=== PATIENT | female | born 1950 | race African-American/Black ===

== ENCOUNTER 2021-02-06 12:56 | Emergency (ER) | payer OTHER ==
[2021-02-06 13:22] VITALS: BP 147/88; PULSE 118; TEMP 98.1; BMI 36.8
[2021-02-06] MEDS ORDERED: DIPHTH,PERTUSS(ACELL),TET 0.5 ML DISP.SYRIN IM ONE ×2 (13:57→14:07)
[2021-02-06] MEDS ORDERED: BACITRACIN 15 GM TUBE TOPICAL OINTMENT ONE (14:44)
[2021-02-06] MEDS ORDERED: BACITRACIN 15 GM TUBE TOPICAL OINTMENT TP ONE (14:44)
== END 2021-02-06 14:40 | disposition home or self-care (01) ==
LOC: JER 12:56
PROC: 3E0234Z Introduction of Serum, Toxoid and Vaccine into Muscle, Percutaneous Approach (ICD-10-PCS; principal; 2021-02-06)
DX: M25.462 Effusion, left knee (principal); S80.02XA Contusion of left knee, initial encounter
CPT/HCPCS: 73562-TC-LT-FY; 90471; 90715; 99284-25

== ENCOUNTER 2023-08-02 14:36 | Inpatient (IN) | payer OTHER ==
[2023-08-02] MEDS: SODIUM CHLORIDE 500 ML IV STA (18:30)
[2023-08-02] MEDS: ONDANSETRON 4 MG/2 ML VIAL IVPUSH ONE (18:30)
[2023-08-02] MEDS ORDERED: ONDANSETRON 4 MG/2 ML VIAL ONE (18:33)
[2023-08-02 18:45] LABS: HEMATOCRIT 30.9 % (32.4-45.2); HEMOGLOBIN 9.3 GM/dL (10.7-15.3); MCH 25.6 pg (25.7-33.7); MEAN CELL VOLUME 85.3 fl (80-96); MEAN PLT VOLUME 9.9 fl (7.5-11.1); PLATELET COUNT 151 10^3/uL (134-434); RBC 3.63 M/mm3 (3.60-5.2); RDW 20.8 % (11.6-15.6)
[2023-08-02 19:07] LABS: POTASSIUM 3.5 mmol/L (3.5-5.1)
[2023-08-02 19:11] LABS: CALCIUM 8.6 mg/dL (8.5-10.1)
[2023-08-02 19:12] LABS: ALBUMIN 1.8 g/dl (3.4-5.0); BLOOD UREA NITROGEN 91.6 mg/dL (7-18)
[2023-08-02 19:15] LABS: CREATININE 4.9 mg/dL (0.55-1.3)
[2023-08-02 19:17] LABS: BILIRUBIN,TOTAL 5.5 mg/dL (0.2-1); TOT PROT 6.7 g/dl (6.4-8.2)
[2023-08-02 19:20] LABS: N-TERMINAL BNP 3086.1 pg/ml (5-125)
[2023-08-02 19:41] LABS: ANISOCYTOSIS 2+; MACROCYTOSIS 1+; TARGET CELLS 2+
[2023-08-02] MEDS ORDERED: VANCOMYCIN 1 GRAM (PRE-DOCKED) 1,000 MG/250 ML BAG IVPB ONE (19:52)
[2023-08-02] MEDS ORDERED: PIPERACILLIN/TAZOB 3.375 GM 3.375 GM/50 ML BAG IVPB ONE ×2 (19:53→20:41)
[2023-08-02 19:56] LABS: VENOUS BASE EXCESS -3.5 mmol/L (-2-2); VENOUS O2 SATURATION 63.7 % (70-80); VENOUS PCO2 43.7 mmHg (38-52); VENOUS PH 7.326 (7.310-7.410)
[2023-08-02] MEDS ORDERED: NOREPINEPHRINE BITARTRATE/D5W 8 MG/250 ML BAG IVPB ONE (19:56)
[2023-08-02 20:06] LABS: INR 2.83 (0.83-1.09); PROTHROMBIN TIME (PATIENT) 32.5 SEC (9.7-13.0)
[2023-08-02 20:08] LABS: ACTIVATED PTT 34.4 SECONDS (25.2-36.5)
[2023-08-02 20:25] LABS: EPI CELLS 23 /uL (0-25.1); HYALINE CASTS 9 /uL (0-3.1); URINE APPEARANCE TURBID; URINE BILIRUBIN 2+ (NEGATIVE); URINE COLOR DK YELLOW; URINE GLUCOSE (UA) NEGATIVE (NEGATIVE); URINE KETONE TRACE (NEGATIVE); URINE LEUK ESTERASE 2+ (NEGATIVE); URINE NITRITE POSITIVE (NEGATIVE); URINE PROTEIN 3+ (NEGATIVE); URINE WBC 424 /uL (0-25.8)
[2023-08-02] MEDS: DEXTROSE 50%-WATER - 25 GM/50 ML VIAL IVPUSH ONE (21:03)
[2023-08-02] MEDS: SODIUM CHLORIDE 0.9% 500 ML INFUS.BAG IV ONE ×2 (21:28→23:10)
[2023-08-02] MEDS: PIPERACILLIN/TAZOB 3.375 GM 3.375 GM in DEXTROSE 5%-WATER - 50 ML IVPB ONE (21:29)
[2023-08-02 21:32] LABS: URINE RBC 497.1 /uL (0-23.9)
[2023-08-02 21:33] LABS: URINE BACTERIA 144.6 /uL (0-1359); URINE CRYSTALS MODERATE /hpf
[2023-08-02] MEDS: VANCOMYCIN 1,000 MG in DEXTROSE 5%-WATER - 250 ML IVPB ONE (22:59)
[2023-08-02] MEDS: NOREPINEPHRINE 0.9 % NACL 8 MG/250 ML BAG IVPB SCH (23:49)
[2023-08-03] MEDS: PANTOPRAZOLE SODIUM 40 MG VIAL IVPUSH ONE (00:55)
[2023-08-03] MEDS ORDERED: PANTOPRAZOLE SODIUM 80 MG/200 ML BAG IVPB ONE (01:16)
[2023-08-03 01:34] LABS: HEMATOCRIT 24.8 % (32.4-45.2); HEMOGLOBIN 7.6 GM/dL (10.7-15.3); MCH 25.9 pg (25.7-33.7); MCHC 30.5 g/dl (32.0-36.0); MEAN PLT VOLUME 9.6 fl (7.5-11.1); PLATELET COUNT 116 10^3/uL (134-434); RBC 2.92 M/mm3 (3.60-5.2); RDW 20.4 % (11.6-15.6); WHITE BLOOD COUNT 21.6 K/mm3 (4.0-10.0)
[2023-08-03] MEDS: PIPERACILLIN/TAZOB 2.25 GM 2.25 GM in DEXTROSE 5%-WATER - 50 ML IVPB SCH ×3 (02:48→17:30)
[2023-08-03] MEDS: LACTATED RINGERS SOLUTION 1,000 ML/1,000 ML INFUS.BAG IV SCH ×2 (02:49→17:30)
[2023-08-03 02:52] LABS: CALCIUM 7.6 mg/dL (8.5-10.1)
[2023-08-03 02:53] LABS: ALBUMIN 1.5 g/dl (3.4-5.0); BLOOD UREA NITROGEN 92.6 mg/dL (7-18); MAGNESIUM 2.5 mg/dL (1.8-2.4)
[2023-08-03 02:56] LABS: CREATININE 4.4 mg/dL (0.55-1.3); PHOSPHOROUS 6.5 mg/dL (2.5-4.9)
[2023-08-03 02:58] LABS: BILIRUBIN,TOTAL 4.3 mg/dL (0.2-1); TOT PROT 5.4 g/dl (6.4-8.2)
[2023-08-03 03:03] LABS: LACTIC ACID 6.8 mmol/L (0.4-2.0)
[2023-08-03] MEDS: KCL 20 MEQ PREMIX BAG 100 ML IVPB SCH (04:29)
[2023-08-03 05:37] LABS: ANISOCYTOSIS 2+; MACROCYTOSIS 0; ROULEAU 1+; TARGET CELLS 2+
[2023-08-03] MEDS: VASopressin 40 UNITS/100 ML BAG IV SCH (07:03)
[2023-08-03] MEDS ORDERED: VASopressin 20 UNITS/ML VIAL IV ONE (07:03)
[2023-08-03] MEDS: HYDROCORTISONE SOD SUCCINATE 100 MG/2 ML VIAL IVPUSH SCH (07:30)
[2023-08-03] MEDS: MUPIROCIN 2% TOPICAL OINTMENT FOR DECOLONIZATION NS SCH (08:17)
[2023-08-03 08:48] LABS: HEMOGLOBIN 8.1 GM/dL (10.7-15.3); MCH 25.6 pg (25.7-33.7); MCHC 30.1 g/dl (32.0-36.0); MEAN CELL VOLUME 84.9 fl (80-96); MEAN PLT VOLUME 9.7 fl (7.5-11.1); PLATELET COUNT 143 10^3/uL (134-434); RBC 3.17 M/mm3 (3.60-5.2); RDW 20.7 % (11.6-15.6); WHITE BLOOD COUNT 24.2 K/mm3 (4.0-10.0)
[2023-08-03 08:59] LABS: POTASSIUM 3.7 mmol/L (3.5-5.1)
[2023-08-03 09:03] LABS: BLOOD UREA NITROGEN 90.5 mg/dL (7-18); CALCIUM 7.9 mg/dL (8.5-10.1)
[2023-08-03 09:04] LABS: ALBUMIN 1.6 g/dl (3.4-5.0); MAGNESIUM 2.6 mg/dL (1.8-2.4)
[2023-08-03 09:06] LABS: BILIRUBIN,DIRECT 3.9 mg/dL (0.0-0.2)
[2023-08-03 09:08] LABS: CREATININE 4.7 mg/dL (0.55-1.3); PHOSPHOROUS 6.2 mg/dL (2.5-4.9); TOT PROT 5.8 g/dl (6.4-8.2)
[2023-08-03 09:10] LABS: LACTIC ACID 5.6 mmol/L (0.4-2.0)
[2023-08-03] MEDS: PANTOPRAZOLE SODIUM 40 MG VIAL IVPUSH SCH (09:34)
[2023-08-03] MEDS: FLUDROCORTISONE ACETATE 0.1 MG TABLET (FP) PO SCH (09:35)
[2023-08-03 09:56] LABS: ANISOCYTOSIS 2+; MACROCYTOSIS 0; ROULEAU 1+; TARGET CELLS 2+
[2023-08-03] MEDS: CHLORHEXIDINE GLUCONATE 4% CLEANSER FOR DECOLONIZATION TP SCH (21:01)
[2023-08-03] MEDS: MELATONIN 5 MG TABLETS PO ONE (22:39)
[2023-08-03] MEDS: FENTANYL CITRATE/PF 50 MCG/ML VIAL IVPUSH ONE (22:39)
[2023-08-04 07:28] LABS: INR 2.54 (0.83-1.09); PROTHROMBIN TIME (PATIENT) 29.2 SEC (9.7-13.0)
[2023-08-04 07:42] LABS: POTASSIUM 3.6 mmol/L (3.5-5.1)
[2023-08-04 07:43] LABS: HEMATOCRIT 25.1 % (32.4-45.2); HEMOGLOBIN 7.4 GM/dL (10.7-15.3); MCH 24.8 pg (25.7-33.7); MCHC 29.5 g/dl (32.0-36.0); MEAN CELL VOLUME 83.9 fl (80-96); MEAN PLT VOLUME 9.5 fl (7.5-11.1); PLATELET COUNT 111 10^3/uL (134-434); RBC 2.99 M/mm3 (3.60-5.2); WHITE BLOOD COUNT 21.9 K/mm3 (4.0-10.0)
[2023-08-04 07:45] LABS: MAGNESIUM 2.4 mg/dL (1.8-2.4)
[2023-08-04 07:46] LABS: ALBUMIN 1.5 g/dl (3.4-5.0); BLOOD UREA NITROGEN 88.8 mg/dL (7-18)
[2023-08-04 07:48] LABS: CREATININE 4.7 mg/dL (0.55-1.3)
[2023-08-04 07:50] LABS: BILIRUBIN,DIRECT 3.7 mg/dL (0.0-0.2); TOT PROT 5.5 g/dl (6.4-8.2)
[2023-08-04 07:51] LABS: BILIRUBIN,TOTAL 4.4 mg/dL (0.2-1)
[2023-08-04 09:14] LABS: ANISOCYTOSIS 2+; MACROCYTOSIS 0
[2023-08-04 11:27] LABS: LACTIC ACID 5.3 mmol/L (0.4-2.0)
[2023-08-04] MEDS: PHYTONADIONE 5 MG TABLET PO ONE (13:51)
[2023-08-05 07:32] LABS: INR 2.06 (0.83-1.09); PROTHROMBIN TIME (PATIENT) 23.7 SEC (9.7-13.0)
[2023-08-05 07:51] LABS: HEMATOCRIT 25.4 % (32.4-45.2); HEMOGLOBIN 7.8 GM/dL (10.7-15.3); MCH 25.7 pg (25.7-33.7); MCHC 30.5 g/dl (32.0-36.0); MEAN CELL VOLUME 84.5 fl (80-96); MEAN PLT VOLUME 9.6 fl (7.5-11.1); PLATELET COUNT 84 10^3/uL (134-434); RBC 3.01 M/mm3 (3.60-5.2); RDW 20.9 % (11.6-15.6); WHITE BLOOD COUNT 22.9 K/mm3 (4.0-10.0)
[2023-08-05 07:56] LABS: ALBUMIN 1.4 g/dl (3.4-5.0)
[2023-08-05 07:57] LABS: LACTIC ACID 5.1 mmol/L (0.4-2.0)
[2023-08-05 07:58] LABS: BILIRUBIN,TOTAL 4.5 mg/dL (0.2-1); TOT PROT 5.3 g/dl (6.4-8.2)
[2023-08-05 07:59] LABS: BILIRUBIN,DIRECT 3.9 mg/dL (0.0-0.2)
[2023-08-05 08:27] LABS: POTASSIUM 3.6 mmol/L (3.5-5.1)
[2023-08-05 08:29] LABS: BLOOD UREA NITROGEN 92.2 mg/dL (7-18); CALCIUM 7.7 mg/dL (8.5-10.1); MAGNESIUM 2.4 mg/dL (1.8-2.4)
[2023-08-05 08:33] LABS: CREATININE 4.9 mg/dL (0.55-1.3)
[2023-08-05 09:13] LABS: ANISOCYTOSIS 2+; MACROCYTOSIS 1+; TARGET CELLS 1+
[2023-08-05] MEDS: MIDODRINE HCL 5 MG TABLET PO SCH (09:21)
[2023-08-05] MEDS ORDERED: MIDODRINE HCL 5 MG TABLET PO SCH (10:00)
[2023-08-05] MEDS ORDERED: ACETAMINOPHEN 1000 MG/100 ML BAG IVPB PRN (11:47)
[2023-08-05] MEDS: LACTATED RINGERS SOLUTION 1,000 ML/1,000 ML INFUS.BAG IV SCH (18:37)
[2023-08-05] MEDS: CEFAZOLIN 500 MG in DEXTROSE 5%-WATER - 50 ML IVPB SCH (19:57)
[2023-08-06 08:32] LABS: POTASSIUM 3.2 mmol/L (3.5-5.1)
[2023-08-06 08:40] LABS: ALBUMIN 1.4 g/dl (3.4-5.0); BLOOD UREA NITROGEN 90.6 mg/dL (7-18); CALCIUM 8.1 mg/dL (8.5-10.1); MAGNESIUM 2.7 mg/dL (1.8-2.4)
[2023-08-06 08:43] LABS: CREATININE 5.3 mg/dL (0.55-1.3); PHOSPHOROUS 4.5 mg/dL (2.5-4.9)
[2023-08-06 08:45] LABS: BILIRUBIN,TOTAL 5.7 mg/dL (0.2-1); INR 1.47 (0.83-1.09)
[2023-08-06 09:13] LABS: HEMATOCRIT 32.6 % (32.4-45.2); HEMOGLOBIN 9.9 GM/dL (10.7-15.3); MCH 25.6 pg (25.7-33.7); MCHC 30.5 g/dl (32.0-36.0); MEAN CELL VOLUME 83.9 fl (80-96); MEAN PLT VOLUME 9.2 fl (7.5-11.1); PLATELET COUNT 105 10^3/uL (134-434); RBC 3.89 M/mm3 (3.60-5.2); RDW 21.5 % (11.6-15.6)
[2023-08-06 09:14] LABS: WHITE BLOOD COUNT 26.8 K/mm3 (4.0-10.0)
[2023-08-06] MEDS: POTASSIUM CHLORIDE ORAL LIQUID 20 MEQ/15 ML PO ONE (09:24)
[2023-08-06] MEDS: ONDANSETRON 4 MG/2 ML VIAL IVPUSH PRN (10:22)
[2023-08-06 10:34] LABS: ANISOCYTOSIS 2+; CORRECTED WBC 21.97 K/mm3; MACROCYTOSIS 0; TARGET CELLS 1+
[2023-08-06 11:00] LABS: BILIRUBIN,DIRECT 4.6 mg/dL (0.0-0.2)
[2023-08-06] MEDS: KCL 10 MEQ IVPB 10 MEQ/100 ML INFUS.BAG IVPB SCH (15:32)
[2023-08-06] MEDS: MELATONIN 5 MG TABLETS PO ONE (23:33)
[2023-08-07] MEDS: HYDROmorphone HCl 2 MG/ML VIAL IVPUSH ONE (03:42)
[2023-08-07] MEDS ORDERED: NALOXONE HCL 0.4 MG/ML VIAL ONE (06:58)
[2023-08-07] MEDS ORDERED: FUROSEMIDE 40 MG/4 ML INJECTABLE VIAL ONE (07:04)
[2023-08-07] MEDS: NALOXONE HCL 0.4 MG/ML VIAL IVPUSH ONE (07:25)
[2023-08-07 07:43] LABS: INR 1.84 (0.83-1.09); PROTHROMBIN TIME (PATIENT) 21.2 SEC (9.7-13.0)
[2023-08-07 07:44] LABS: HEMATOCRIT 33.4 % (32.4-45.2); HEMOGLOBIN 9.1 GM/dL (10.7-15.3); MCH 25.3 pg (25.7-33.7); MCHC 27.2 g/dl (32.0-36.0); MEAN CELL VOLUME 93.1 fl (80-96); MEAN PLT VOLUME 9.6 fl (7.5-11.1); PLATELET COUNT 123 10^3/uL (134-434); RBC 3.59 M/mm3 (3.60-5.2); RDW 22.3 % (11.6-15.6)
[2023-08-07 07:46] LABS: ACTIVATED PTT 34.9 SECONDS (25.2-36.5)
[2023-08-07 07:50] LABS: WHITE BLOOD COUNT 47.4 K/mm3 (4.0-10.0)
[2023-08-07 07:57] LABS: CHLORIDE 102 mmol/L (98-107); SODIUM 140 mmol/L (136-145)
[2023-08-07 08:04] LABS: CALCIUM 8.6 mg/dL (8.5-10.1)
[2023-08-07 08:05] LABS: ALBUMIN 1.5 g/dl (3.4-5.0); ANION GAP 29 mmol/L (4-13); CO2 9 mmol/L (21-32); GLUCOSE,RANDOM 60 mg/dL (74-106)
[2023-08-07 08:07] LABS: CREATININE 6.2 mg/dL (0.55-1.3)
[2023-08-07 08:08] LABS: PHOSPHOROUS 7.9 mg/dL (2.5-4.9); SGOT/AST 375 U/L (15-37); SGPT/ALT 82 U/L (13-61)
[2023-08-07 08:09] LABS: TOT PROT 5.8 g/dl (6.4-8.2)
[2023-08-07 08:36] LABS: ANISOCYTOSIS 1+; CORRECTED WBC 37.32 K/mm3; MACROCYTOSIS 0
[2023-08-07 08:41] LABS: ALK PHOS 1067 U/L (45-117)
[2023-08-07] MEDS: FUROSEMIDE 40 MG/4 ML INJECTABLE VIAL IVPUSH ONE (09:24)
[2023-08-07] MEDS ORDERED: CEFEPIME HCL 1 GM VIAL (RESTRICTED TO ID) IVPB SCH (10:00)
[2023-08-07] MEDS: CEFEPIME 1 GM in DEXTROSE 5%-WATER 100 ML IVPB SCH (10:25)
[2023-08-07] MEDS: DEXMEDETOMIDINE PREMIX 400 MCG/100 ML BAG IVPB SCH (10:27)
[2023-08-07] MEDS: VANCOMYCIN 1,000 MG in DEXTROSE 5%-WATER - 250 ML IVPB ONE (10:47)
[2023-08-07] MEDS: CEFEPIME HCL 1 GM VIAL (RESTRICTED TO ID) IVPB SCH (10:47)
[2023-08-07] MEDS: SODIUM BICARBONATE 8.4% 50 MEQ/50 ML DISP.SYRIN IVPUSH ONE ×2 (11:00→11:37)
[2023-08-07] MEDS: VANCOMYCIN/WATER 1250 MG 1,250 MG/250 ML BAG IVPB ONE (11:00)
[2023-08-07 12:11] LABS: ARTERIAL BLD GAS O2 SATURATION 98.7 % (95-98); ARTERIAL BLOOD GAS BASE EXCESS -20.4 mmol/L (-2-2)
[2023-08-07 12:17] LABS: ARTERIAL BLOOD GAS pH 7.154 (7.350-7.450)
[2023-08-07 13:30] VITALS: BMI 38.0
[2023-08-07] MEDS ORDERED: SODIUM CHLORIDE 250 ML IV PRN (14:25)
[2023-08-07] MEDS ORDERED: PHENYLEPHRINE HCL 10 MG/1 ML SINGLE DOSE VIAL ONE (16:14)
[2023-08-07] MEDS: PHENYLEPHRINE NS PREMIX 50,000 MCG/500 ML BAG CVP SCH (16:30)
[2023-08-07 18:34] LABS: ARTERIAL BLD GAS O2 SATURATION 99.1 % (95-98); ARTERIAL BLOOD GAS BASE EXCESS -13.2 mmol/L (-2-2); ARTERIAL BLOOD GAS PO2 185.4 mmHg (80-100); ARTERIAL BLOOD GAS pH 7.265 (7.350-7.450)
[2023-08-07 19:09] LABS: BLOOD UREA NITROGEN 28.4 mg/dL (7-18); CALCIUM 7.5 mg/dL (8.5-10.1); CREATININE 2.1 mg/dL (0.55-1.3); POTASSIUM 3.1 mmol/L (3.5-5.1)
[2023-08-07] MEDS: DEXTROSE 50%-WATER 25 GM/50 ML DISP.SYRIN IVPUSH ONE ×2 (19:10)
[2023-08-07] MEDS ORDERED: DEXTROSE 50%-WATER 25 GM/50 ML DISP.SYRIN ONE (19:10)
[2023-08-07] MEDS: KCL 20 MEQ PREMIX BAG 20 MEQ/100 ML INFUS.BAG IVPB ONE (21:22)
[2023-08-07] MEDS ORDERED: MELATONIN 5 MG TABLETS PO ONE (23:14)
[2023-08-08] MEDS: ETOMIDATE 40 MG/20 ML VIAL IVPUSH ONE (05:20)
[2023-08-08] MEDS ORDERED: RAPID SEQUENCE INTUBATION KIT NR ONE (05:22)
[2023-08-08] MEDS ORDERED: fentaNYL CITRATE 250 MCG/5 ML VIAL ONE (05:27)
[2023-08-08] MEDS ORDERED: DEXTROSE 50%-WATER 25 GM/50 ML DISP.SYRIN ONE ×2 (06:03→11:51)
[2023-08-08] MEDS: DEXTROSE 50%-WATER 25 GM/50 ML DISP.SYRIN IVPUSH ONE ×3 (06:15→20:11)
[2023-08-08] MEDS: PROPOFOL 1,000,000 MCG/100 ML VIAL IVPB SCH (06:34)
[2023-08-08 06:50] LABS: ARTERIAL BLD GAS O2 SATURATION 99.1 % (95-98); ARTERIAL BLOOD GAS BASE EXCESS -25.3 mmol/L (-2-2); ARTERIAL BLOOD GAS pH 6.935 (7.350-7.450)
[2023-08-08 06:53] LABS: VENT MODE A/C; VENT RATE 20
[2023-08-08 07:36] LABS: HEMATOCRIT 25.7 % (32.4-45.2); MCH 25.5 pg (25.7-33.7); MCHC 27.3 g/dl (32.0-36.0); MEAN CELL VOLUME 93.6 fl (80-96); MEAN PLT VOLUME 9.3 fl (7.5-11.1); PLATELET COUNT 77 10^3/uL (134-434); RBC 2.74 M/mm3 (3.60-5.2); RDW 22.3 % (11.6-15.6)
[2023-08-08 07:42] LABS: WHITE BLOOD COUNT 36.5 K/mm3 (4.0-10.0)
[2023-08-08 07:54] LABS: CHLORIDE 102 mmol/L (98-107); SODIUM 138 mmol/L (136-145)
[2023-08-08 08:00] LABS: CALCIUM 7.4 mg/dL (8.5-10.1)
[2023-08-08 08:01] LABS: ALBUMIN 1.6 g/dl (3.4-5.0); CO2 6 mmol/L (21-32); GLUCOSE,RANDOM 62 mg/dL (74-106); MAGNESIUM 2.7 mg/dL (1.8-2.4)
[2023-08-08 08:02] LABS: BILIRUBIN,DIRECT 5.2 mg/dL (0.0-0.2)
[2023-08-08 08:04] LABS: CREATININE 5.6 mg/dL (0.55-1.3); SGPT/ALT 303 U/L (13-61)
[2023-08-08 08:05] LABS: BILIRUBIN,TOTAL 6.7 mg/dL (0.2-1); TOT PROT 4.8 g/dl (6.4-8.2)
[2023-08-08 08:52] LABS: ALK PHOS 928 U/L (45-117); ANION GAP 30 mmol/L (4-13); BLOOD UREA NITROGEN 79.8 mg/dL (7-18); PHOSPHOROUS 9.1 mg/dL (2.5-4.9); POTASSIUM 6.2 mmol/L (3.5-5.1); SGOT/AST 3164 U/L (15-37)
[2023-08-08] MEDS: DEXTROSE 50%-WATER - 25 GM/50 ML VIAL IVPUSH ONE ×2 (09:42→12:09)
[2023-08-08] MEDS: DEXTROSE 5%-WATER - 1,000 ML IV SCH (10:00)
[2023-08-08 10:25] LABS: ANISOCYTOSIS 2+; CORRECTED WBC 23.55 K/mm3; MACROCYTOSIS 0; TARGET CELLS 1+
[2023-08-08] MEDS ORDERED: DEXTROSE 5%-WATER - 1,000 ML with SODIUM BICARBONATE 8.4% - 50 MEQ IV SCH (14:00)
[2023-08-08] MEDS: SODIUM BICARBONATE 8.4% - 50 MEQ in DEXTROSE 5%-WATER - 1,000 ML IV SCH (14:12)
[2023-08-08] MEDS: SODIUM ZIRCONIUM CYCLOSILICATE (LOKELMA) 5 GM PACKET NGT SCH (15:03)
[2023-08-08] MEDS: VANCOMYCIN/WATER FOR INJ (PEG) 1,000 MG/200 ML BAG IVPB ONE (15:55)
[2023-08-08 16:11] LABS: ARTERIAL BLD GAS O2 SATURATION 99.2 % (95-98); ARTERIAL BLOOD GAS BASE EXCESS -29.4 mmol/L (-2-2)
[2023-08-08 16:21] LABS: VENT MODE 1/AC; VENT RATE 20
[2023-08-08 16:26] LABS: ARTERIAL BLOOD GAS pH 6.795 (7.350-7.450)
[2023-08-08] MEDS: SODIUM BICARBONATE 8.4% 50 MEQ/50 ML DISP.SYRIN IVPUSH ONE ×2 (16:30→20:48)
[2023-08-08] MEDS: SODIUM BICARBONATE 8.4% - 150 MEQ in DEXTROSE 5%-WATER - 1,000 ML IV SCH (16:30)
[2023-08-08] MEDS ORDERED: SODIUM BICARBONATE 8.4% 50 MEQ/50 ML VIAL ONE (16:34)
[2023-08-08] MEDS ORDERED: SODIUM CHLORIDE 250 ML IV PRN (16:54)
[2023-08-08 18:29] LABS: HEMATOCRIT 24.8 % (32.4-45.2); MCH 26.3 pg (25.7-33.7); MCHC 26.8 g/dl (32.0-36.0); MEAN CELL VOLUME 98.2 fl (80-96); MEAN PLT VOLUME 9.6 fl (7.5-11.1); PLATELET COUNT 70 10^3/uL (134-434); RBC 2.53 M/mm3 (3.60-5.2); RDW 22.7 % (11.6-15.6)
[2023-08-08 18:35] LABS: WHITE BLOOD COUNT 38.9 K/mm3 (4.0-10.0)
[2023-08-08 18:36] LABS: HEMOGLOBIN 6.6 GM/dL (10.7-15.3)
[2023-08-08 18:52] LABS: ALBUMIN 1.4 g/dl (3.4-5.0); ALK PHOS 987 U/L (45-117); ANION GAP 32 mmol/L (4-13); BILIRUBIN,TOTAL 6.2 mg/dL (0.2-1); BLOOD UREA NITROGEN 79.3 mg/dL (7-18); CALCIUM 7.2 mg/dL (8.5-10.1); CHLORIDE 101 mmol/L (98-107); CO2 6 mmol/L (21-32); CREATININE 5.9 mg/dL (0.55-1.3); GLUCOSE,RANDOM 230 mg/dL (74-106); POTASSIUM 7.5 mmol/L (3.5-5.1); SGOT/AST 5403 U/L (15-37); SGPT/ALT 431 U/L (13-61); SODIUM 140 mmol/L (136-145); TOT PROT 4.4 g/dl (6.4-8.2)
[2023-08-08] MEDS: INSULIN REGULAR HUMAN 100 UNITS/ML *VIAL IVPUSH ONE (20:11)
[2023-08-08] MEDS: NOREPINEPHRINE BITARTRATE/D5W 8 MG/250 ML BAG IVPB SCH (20:11)
[2023-08-08] MEDS: EPINEPHrine 1:1,000 1,000 MCG in DEXTROSE 5%-WATER - 249 ML IVPB SCH (20:11)
[2023-08-08] MEDS: CALCIUM GLUCONATE 10% - 1,000 MG/10 ML VIAL IVPB ONE (20:12)
[2023-08-08] MEDS: CALCIUM GLUCONATE 10% - 1,000 MG/10 ML VIAL IVPUSH ONE (20:12)
[2023-08-08 20:21] LABS: ARTERIAL BLD GAS O2 SATURATION 99.6 % (95-98); ARTERIAL BLOOD GAS BASE EXCESS -20.8 mmol/L (-2-2); ARTERIAL BLOOD GAS PO2 352.6 mmHg (80-100)
[2023-08-08 20:27] LABS: VENT MODE A/C
[2023-08-08 20:28] LABS: VENT RATE 26
[2023-08-08 20:29] LABS: ARTERIAL BLOOD GAS pH 7.068 (7.350-7.450)
[2023-08-08 21:51] LABS: CHLORIDE 100 mmol/L (98-107); SODIUM 143 mmol/L (136-145)
[2023-08-08 21:53] LABS: CALCIUM 7.3 mg/dL (8.5-10.1); CO2 10 mmol/L (21-32)
[2023-08-08 21:54] LABS: BLOOD UREA NITROGEN 62.5 mg/dL (7-18); GLUCOSE,RANDOM 202 mg/dL (74-106); MAGNESIUM 2.5 mg/dL (1.8-2.4)
[2023-08-08 21:56] LABS: ANION GAP 33 mmol/L (4-13); CREATININE 4.7 mg/dL (0.55-1.3); POTASSIUM 6.2 mmol/L (3.5-5.1)
[2023-08-09] MEDS ORDERED: SODIUM BICARBONATE 8.4% 50 MEQ/50 ML VIAL ONE ×3 (00:34→11:44)
[2023-08-09] MEDS ORDERED: SODIUM BICARBONATE 8.4% 50 MEQ/50 ML DISP.SYRIN ONE ×3 (00:34→11:32)
[2023-08-09] MEDS: SODIUM BICARBONATE 8.4% 50 MEQ/50 ML DISP.SYRIN IVPUSH ONE ×2 (00:38→04:35)
[2023-08-09 06:12] LABS: ARTERIAL BLD GAS O2 SATURATION 94.8 % (95-98); ARTERIAL BLOOD GAS BASE EXCESS -20.7 mmol/L (-2-2); ARTERIAL BLOOD GAS PO2 96.5 mmHg (80-100)
[2023-08-09 06:22] LABS: ARTERIAL BLOOD GAS pH 7.096 (7.350-7.450)
[2023-08-09 06:24] LABS: VENT MODE A/C; VENT RATE 28
[2023-08-09 07:01] LABS: HEMATOCRIT 23.5 % (32.4-45.2); MCH 27.8 pg (25.7-33.7); MCHC 29.2 g/dl (32.0-36.0); MEAN CELL VOLUME 95.2 fl (80-96); MEAN PLT VOLUME 9.2 fl (7.5-11.1); PLATELET COUNT 48 10^3/uL (134-434); RBC 2.46 M/mm3 (3.60-5.2); RDW 19.8 % (11.6-15.6)
[2023-08-09 07:11] LABS: WHITE BLOOD COUNT 53.8 K/mm3 (4.0-10.0)
[2023-08-09 07:13] LABS: ACTIVATED PTT 89.3 SECONDS (25.2-36.5)
[2023-08-09 07:14] LABS: CHLORIDE 97 mmol/L (98-107); SODIUM 145 mmol/L (136-145)
[2023-08-09 07:17] LABS: ALBUMIN 1.4 g/dl (3.4-5.0); BLOOD UREA NITROGEN 65.2 mg/dL (7-18); CO2 8 mmol/L (21-32); GLUCOSE,RANDOM 174 mg/dL (74-106); MAGNESIUM 2.5 mg/dL (1.8-2.4)
[2023-08-09 07:19] LABS: HEMOGLOBIN 6.8 GM/dL (10.7-15.3)
[2023-08-09 07:20] LABS: CREATININE 4.9 mg/dL (0.55-1.3); SGPT/ALT 678 U/L (13-61)
[2023-08-09 07:21] LABS: BILIRUBIN,TOTAL 6.5 mg/dL (0.2-1); TOT PROT 3.8 g/dl (6.4-8.2)
[2023-08-09 08:17] LABS: INR 6.94 (0.83-1.09)
[2023-08-09] MEDS: ALBUTEROL SO4 0.083% IH SOL 2.5 MG/3 ML VIAL.NEB. NEB SCH ×2 (09:00→12:01)
[2023-08-09] MEDS ORDERED: CALCIUM GLUCONATE 10% - 1,000 MG/10 ML VIAL ONE ×3 (09:11→11:45)
[2023-08-09 09:28] LABS: ANISOCYTOSIS 0; CORRECTED WBC 35.39 K/mm3; MACROCYTOSIS 0; OVALOCYTE 1+
[2023-08-09] MEDS: DEXTROSE 50%-WATER 25 GM/50 ML DISP.SYRIN IVPUSH ONE (09:31)
[2023-08-09] MEDS: INSULIN REGULAR HUMAN 100 UNITS/ML *VIAL IVPUSH ONE ×2 (09:32→12:36)
[2023-08-09] MEDS: CALCIUM CHLORIDE 10% 1 GM/10 ML *VIAL IVPUSH ONE (09:34)
[2023-08-09] MEDS: CALCIUM GLUC IN NACL, ISO-OSM 1 GM/50 ML BAG IVPB ONE ×2 (09:40→12:36)
[2023-08-09 10:45] LABS: ALK PHOS 912 U/L (45-117); ANION GAP 40 mmol/L (4-13); CALCIUM 6.5 mg/dL (8.5-10.1); PHOSPHOROUS 10.8 mg/dL (2.5-4.9); POTASSIUM 6.9 mmol/L (3.5-5.1)
[2023-08-09] MEDS ORDERED: DOPAMINE 400 MG/D5W - 400,000 MCG/250 ML INFUS.BAG IVPB ONE (12:25)
[2023-08-09] MEDS: DEXTROSE 50%-WATER - 25 GM/50 ML VIAL IVPUSH ONE (12:35)
[2023-08-09] MEDS: DOPAMINE 400 MG/D5W - 400,000 MCG/250 ML INFUS.BAG IVPB SCH (12:45)
[2023-08-09] MEDS ORDERED: SODIUM CHLORIDE 250 ML IV PRN (13:00)
[2023-08-09] MEDS: VASopressin 40 UNITS/100 ML BAG IV SCH (13:27)
[2023-08-09 14:27] VITALS: BP 58/28; PULSE 96; TEMP 95.7
[2023-08-09 15:10] VITALS: RESP 28
[2023-08-10 22:07] LABS: ANTIGLOMERULAR BASEMENT MEN.AB <0.2 units (0.0-0.9)
[2023-08-12 16:07] LABS: ATYPICAL pANCA <1:20 titer (Neg:<1:20); C-ANCA <1:20 titer (Neg:<1:20)
== END 2023-08-09 15:00 | disposition expired | DRG 871 ==
LOC: JER 14:36 → JERBED 20:41 → JICU 08-03 01:58
PROVIDERS: ADMIT Internal Medicine Pulmonary Disease; ATTEND Internal Medicine Pulmonary Disease
PROC: 06HM33Z Insertion of Infusion Device into Right Femoral Vein, Percutaneous Approach (ICD-10-PCS; principal; 2023-08-07)
PROC: B54BZZA Ultrasonography of Right Lower Extremity Veins, Guidance (ICD-10-PCS; 2023-08-07)
PROC: 4A133B1 Monitoring of Arterial Pressure, Peripheral, Percutaneous Approach (ICD-10-PCS; 2023-08-07)
PROC: 4A133J1 Monitoring of Arterial Pulse, Peripheral, Percutaneous Approach (ICD-10-PCS; 2023-08-07)
PROC: 0BH17EZ Insertion of Endotracheal Airway into Trachea, Via Natural or Artificial Opening (ICD-10-PCS; 2023-08-07)
PROC: 5A1D70Z Performance of Urinary Filtration, Intermittent, Less than 6 Hours Per Day (ICD-10-PCS; 2023-08-07)
PROC: 5A1D70Z Performance of Urinary Filtration, Intermittent, Less than 6 Hours Per Day (ICD-10-PCS; 2023-08-07)
PROC: 5A1D70Z Performance of Urinary Filtration, Intermittent, Less than 6 Hours Per Day (ICD-10-PCS; 2023-08-07)
PROC: 5A1935Z Respiratory Ventilation, Less than 24 Consecutive Hours (ICD-10-PCS; 2023-08-07)
DX: A41.89 Other specified sepsis (principal); I63.89 Other cerebral infarction; J18.9 Pneumonia, unspecified organism; R65.21 Severe sepsis with septic shock; J96.01 Acute respiratory failure with hypoxia; E87.20 Acidosis, unspecified; N39.0 Urinary tract infection, site not specified; N17.9 Acute kidney failure, unspecified; D68.9 Coagulation defect, unspecified; E87.5 Hyperkalemia; E87.70 Fluid overload, unspecified; I10 Essential (primary) hypertension; D64.9 Anemia, unspecified; B96.1 Klebsiella pneumoniae [K. pneumoniae] as the cause of diseases classified elsewhere; R01.1 Cardiac murmur, unspecified; D49.0 Neoplasm of unspecified behavior of digestive system; K80.20 Calculus of gallbladder without cholecystitis without obstruction; N20.0 Calculus of kidney; R79.89 Other specified abnormal findings of blood chemistry; D72.829 Elevated white blood cell count, unspecified; D69.6 Thrombocytopenia, unspecified; Z79.82 Long term (current) use of aspirin
CPT/HCPCS: 0241U-QW; 36415; 36430; 36600; 70450-TC; 71045-TC-FY; 71250-TC; 72125-TC; 74018-TC-FY; 74176-TC; 74181-TC; 76705-TC; 76775-TC; 80048; 80053; 80076; 80307; 81003; 82105; 82140; 82248; 82272; 82378; 82550; 82570; 82803; 82962; 82977; 83036; 83516; 83520; 83605; 83735; 83880; 83935; 84100; 84155; 84165; 84300; 84484; 85025; 85027; 85610; 85730; 86038; 86140; 86225; 86256; 86301; 86704; 86708; 86803; 86850; 86900; 86901; 86922; 87040; 87070; 87086; 87186; 87205; 87340; 87517; 87899; 93005; 93010; 93306-TC; 94002; 94640; 94660; 99285-25; G0480; J3490; P9038; P9058